=== PATIENT | female | born 1935 | race Caucasian/White ===

== ENCOUNTER 2017-01-04 05:58 | Day surgery (SDC) | payer MEDICARE ==
[~2017-01-04 05:58] MED LIST: IV START KIT ONE; LACTATED RINGERS 1,000 ML ONE
[2017-01-04] MEDS ORDERED: CEFAZOLIN SODIUM 2 GRAM DUPLEX 50 ML IV PRN (06:00)
[2017-01-04] MEDS ORDERED: GENTAMICIN SULFATE 320 MG in SODIUM CHLORIDE 0.9% 100 ML IV PRN (06:00)
[2017-01-04] MEDS ORDERED: CEFAZOLIN SODIUM 2 GRAM PREMIX 100 ML IV ONE (06:39)
[2017-01-04] MEDS ORDERED: MIDAZOLAM HCL 1 MG/ML 2ML VIAL ONE (06:47)
[2017-01-04] MEDS ORDERED: FENTANYL 100 MCG/2 ML VIAL ONE ×2 (06:48→08:27)
[2017-01-04] MEDS ORDERED: ROCURONIUM BROMIDE 10 MG/ML DOSE IV ONE (06:48)
[2017-01-04] MEDS ORDERED: PROPOFOL 20 ML IV ONE (06:48)
[2017-01-04] MEDS ORDERED: IOPAMIDOL 300 (61%) 30 ML SDV ONE (06:56)
[2017-01-04] MEDS ORDERED: SODIUM CHLORIDE 0.9% 50 ML ONE (06:56)
[2017-01-04] MEDS ORDERED: OPIUM/BELLADONNA ALKALOIDS 1 EACH SUP PR ONE (07:07)
[2017-01-04] MEDS ORDERED: PROMETHAZINE HCL 25 MG/ML VIAL IM PRN (07:11)
[2017-01-04] MEDS ORDERED: ONDANSETRON 4 MG/2ML 2 ML VIAL IV PRN ×2 (07:11→08:56)
[2017-01-04] MEDS ORDERED: ATROPINE SULFATE 0.4 MG/1 ML VIAL IV PRN (07:11)
[2017-01-04] MEDS ORDERED: HYDRALAZINE HCL 20 MG/1 ML VIAL IV PRN (07:11)
[2017-01-04] MEDS ORDERED: NALOXONE HCL 0.4 MG/ML VIAL IV PRN (07:11)
[2017-01-04] MEDS ORDERED: MEPERIDINE 25 MG/ML SYRINGE IV PRN (07:11)
[2017-01-04] MEDS ORDERED: LABETALOL HCL 5 MG/ML 20ML VIAL IV PRN (07:11)
[2017-01-04] MEDS ORDERED: LACTATED RINGERS 1,000 ML IV SCH (07:15)
[2017-01-04] MEDS ORDERED: EPHEDRINE SULFATE UD SYR 25 MG 25 MG/5 ML SYRINGE IV ONE (07:28)
[2017-01-04] MEDS ORDERED: NEOSTIGMINE METHYLSULFATE 1 MG/ML DOSE ONE (07:58)
[2017-01-04] MEDS ORDERED: GLYCOPYRROLATE 0.2 MG/ML 1ML VIAL ONE (07:58)
[2017-01-04] MEDS ORDERED: ONDANSETRON 4 MG/2ML 2 ML VIAL ONE (08:14)
[2017-01-04] MEDS ORDERED: LACTATED RINGERS 1,000 ML ONE (08:23)
[2017-01-04] MEDS: FENTANYL 100 MCG/2 ML VIAL IV PRN ×3 (08:28→08:38)
[2017-01-04] MEDS ORDERED: HYDROMORPHONE HCL 1 MG/ML SYRINGE ONE (08:43)
[2017-01-04] MEDS: HYDROMORPHONE HCL 1 MG/ML SYRINGE IV PRN ×2 (08:45→09:07)
--- NOTE | 2017-01-04 08:54 | OP ---
ROCAEL ALMENDAREZ [id number] DATE OF OPERATION: January 04, 2017 SURGEON: Nash Jimenez M.D. NURSE ANESTHESIA PROGRAM DIRECTOR: None. ANESTHESIA: General. PREOPERATIVE DIAGNOSES: Right ureteral calculus. POSTOPERATIVE DIAGNOSES: Right ureteral calculus. PROCEDURE: 1. CYSTOSCOPY. 2. RIGHT RETROGRADE UROGRAPHY. 3. RIGHT URETEROSCOPY WITH LASER LITHOTRIPSY. 4. RIGHT URETERAL STENT. SPECIMENS: Fragments of right ureteral calculus. INDICATIONS: An 81-year-old woman with a history of urolithiasis, had a CT for abdominal pain on December 15, 2070 revealing an approximately 8.5 mm right distal ureteral calculus. She had some flank pain and has also experienced some increased urgency with urge incontinence. She presents now for surgical intervention. FINDINGS: There is genitourinary atrophy. She has at least a moderate rectocele. The bladder gastelum are free of focal lesions. Ureteral orifices are normally disposed. The stone was situated in the right distal ureter with a mild degree of proximal ureteral dilation. It was at least 8 mm in size and irregular in contour. PROCEDURE: The patient was identified and brought to the operating room where general anesthesia was induced supine, and she was placed in a dorsal lithotomy position with the right leg low and the left leg high. The genital region was prepared and draped sterilely. A 21 Lebanese cystoscope was introduced with saline as an irrigant. Findings are reported above. A cone tip catheter was applied against the right ureteral orifice and a retrograde study obtained with fluoroscopic guidance. Having identified the stone, we passed a floppy tip wire which negotiated its way past the stone to the level of the renal pelvis. Next, we switched out the cystoscope to the semi-rigid ureteroscope using saline as an irrigant. We carefully worked up the right distal ureter up to the level of the stone. We then used the 200 micron holmium laser fiber with 0.8 joules and a rate of 10 Hertz to fragment the stone, using 1.35 kilojoules of energy in total. Next, an open ended stone basket was used to retrieve the fragments. We then examined the ureter at least mcfp up and finding no further stones or fragments, we removed the ureteroscope and back threaded the wire through the cystoscope. Over the wire, a 22 cm 6 Lebanese Polaris type stent was passed and the wire removed. After confirming stent position, we removed the cystoscope and placed a 20 Lebanese Gatica catheter to gravity drainage with temporary observation of hematuria. Estimated blood loss less than 10 mL. No early complications. Patient tolerated the procedure well and was taken in stable condition to the post anesthesia room. cc: Nash Jimenez M.D. Eduardo Vides M.D.
[2017-01-04] MEDS ORDERED: PHENAZOPYRIDINE HCL 200 MG TABLET PO SCH (09:00)
[2017-01-04] MEDS: HYDROCODONE/ACETAMINOPHEN 5/325MG TABLET PO PRN ×2 (09:32→11:10)
[2017-01-04] MEDS: MORPHINE SULFATE 2 MG/ML SYRINGE IV PRN ×3 (09:37→11:10)
--- NOTE | 2017-01-04 09:51 | RAD ---
RETROGRADE UROGRAM COMPARISON: None HISTORY: 81-year-old female with right ureteral calculus. Right retrograde urography, right ureteroscopy with laser lithotripsy, and right ureteral stent. Fluoroscopy time: 71.2 seconds FINDINGS: Views: 4 right retrograde ureterogram views. Right ureter: Filling defect in the lower third of the right ureter. Right renal collecting system: Mild right hydronephrosis. Stent: Satisfactory position of right ureteral stent. IMPRESSION: 1. Removal of stone from the lower third of the right ureter and placement of a stent in the right ureter.
[2017-01-04] MEDS ORDERED: MORPHINE SULFATE 2 MG/ML SYRINGE ONE (11:05)
[2017-01-04] MEDS ORDERED: HYDROCODONE/ACETAMINOPHEN 5/325MG TABLET ONE (11:05)
[2017-01-07 14:20] LABS: CALCULUS NUMBER 3 (()); CALCULUS TOTAL WEIGHT 29 mg (())
== END 2017-01-04 11:45 | disposition home or self-care (01) ==
LOC: SDC 05:58
PROVIDERS: ATTEND Urology
PROC: 0TF68ZZ Fragmentation in Right Ureter, Via Natural or Artificial Opening Endoscopic (ICD-10-PCS; principal; 2017-01-04)
PROC: 0T768DZ Dilation of Right Ureter with Intraluminal Device, Via Natural or Artificial Opening Endoscopic (ICD-10-PCS; 2017-01-04)
DX: N20.1 Calculus of ureter (principal); F17.210 Nicotine dependence, cigarettes, uncomplicated; K21.9 Gastro-esophageal reflux disease without esophagitis; I45.10 Unspecified right bundle-branch block; G20 Parkinson's disease; M19.90 Unspecified osteoarthritis, unspecified site; Z87.442 Personal history of urinary calculi; Z79.899 Other long term (current) drug therapy; Z79.82 Long term (current) use of aspirin